=== PATIENT | male | born 1980 | race Caucasian/White ===

== ENCOUNTER 2021-03-25 08:03 | Emergency (ER) | payer SELFPAY ==
[~2021-03-25] VITALS: Ht 172 cm; Wt 82.5 kg
--- NOTE | 2021-03-25 10:12 | Diagnostic Imaging Report ---
INDICATION: Cough. FINDINGS: Portable chest. The lungs are well-aerated and clear. There is no air-trapping. Heart is not enlarged. No pulmonary edema or hilar adenopathy. No pneumothorax or pleural effusions. IMPRESSION: Normal portable chest. Dictated by: Dictated on workstation # [id number]
--- NOTE | 2021-03-25 10:32 | ED Cough/URI ---
General Chief Complaint: Cough/Cold/Flu Symptoms Stated Complaint: CHEST CONGESTION/SOB Nursing Triage Note: PT PRESENTS TO ED VIA POV FROM HOME WITH COMPLAINTS OF CHEST CONGESTION AND COUH X 2 WEEKS. PT REPORTS HE WAS SEEN AT [facility] 3 TIMES SINCE THEN AND HAD 3 COVID TEST DONE WITHIN THE LAST 3 WEEKS ALL OF WHICH HAVE BEEN NEGATIVE. PT STATES HIS LAST VISIT HE WAS DIAGNOSED WITH PNEUMONIA AND PRESCRIBED A 10 DAY COURSE OF ANTIBIOTICS AND AN INHALER. PT DENIES IMPROVEMENT. PT DENIES FEVER. Source: patient Exam Limitations: no limitations History of Present Illness Date Seen by Provider: Mar 25, 2021 Time Seen by Provider: 09:27 Initial Comments Here with report of a few weeks of cough and congestion. He has been on antibiotics and has an inhaler. Still has the cough and congestion. 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 He is concerned about possibility of pneumonia. He has completed 10-day course of Augmentin. Denies nausea, vomiting or diarrhea. He quit smoking 5 months ago. Used to smoke about 5 cigarettes a day. Timing/Duration: constant, getting worse Severity/Quality: moderate, dry cough Prior Episodes/Possible Cause: no prior episodes Modifying Factors: Worse With Coughing Associated Symptoms: cough, fever/chills, nasal congestion, shortness of breath Allergies and Home Medications Allergies Coded Allergies: No Known Drug Allergies (Unverified , 03/25/21) Patient Home Medication List Home Medication List Reviewed: Yes Review of Systems Review of Systems Constitutional: see HPI; No chills, No fever EENTM: throat pain; No nose congestion Respiratory: cough, short of breath Cardiovascular: chest pain (Central chest discomfort with coughing); No edema Gastrointestinal: No abdominal pain, No nausea, No vomiting Genitourinary: no symptoms reported Musculoskeletal: muscle pain; No muscle weakness Past Xmufgek-Wsvyoy-Tjtihh Hx Patient Social History Tobacco Use?: No Smoking Status: Former Smoker Substance use?: No Alcohol Use?: Yes Alcohol type: Beer Alcohol Frequency: Daily Pt feels they are or have been: No Past Medical History Surgery/Hospitalization HX: PMH: KIDNEY STONES Family Medical History Reviewed Nursing Family Hx Physical Exam Vital Signs - First Documented 03/25/21 08:15 Temp 35.9 Pulse 86 Resp 18 B/P (MAP) 136/102 (113) Pulse Ox 97 O2 Delivery Room Air Capillary Refill : Less Than 3 Seconds Height: '" Weight: lbs. oz. kg; 27.00 BMI Method: General Appearance: WD/WN, no apparent distress HEENT: PERRL/EOMI Neck: full range of motion, supple Respiratory: lungs clear, normal breath sounds Cardiovascular: regular rate, rhythm, no murmur Neurologic/Psychiatric: alert, oriented x 3 Progress/Results/Core Measures Suspected Sepsis SIRS Temperature: Pulse: 86 Respiratory Rate: 18 Blood Pressure 136 /102 Mean: 113 Results/Orders My Orders Orders - ALINE BRADSHAW MD Chest 1 View, Ap/Pa Only (03/25/21 09:27) Vital Signs/I&O 03/25/21 03/25/21 08:15 08:15 Temp 35.9 Pulse 86 Resp 18 B/P (MAP) 136/102 (113) Pulse Ox 97 O2 Delivery Room Air Capillary Refill : Less Than 3 Seconds Blood Pressure Mean: 113 Progress Note : Progress Note Seen and evaluated. Chest x-ray ordered. Chest x-ray shows no pneumonia. I do believe the patient would benefit from a course of oral steroids. This was discussed with the patient and he agrees. Discharged home with return precautions. Patient verbalized understanding instructions and agreement with plan Diagnostic Imaging Diagonstic Imaging: Xray Plain Films/CT/US/NM/MRI: chest Comments [facility] [place], [place] NAME: KARLI GODOY [facility] REC#: [id number] PT STATUS: REG ER : 1980 PHYSICIAN: ALINE BRADSHAW MD ADMIT DATE: 03/25/21/ER Draft Date of Exam:03/25/21 CHEST 1 VIEW, AP/PA ONLY INDICATION: Cough. FINDINGS: Portable chest. The lungs are well-aerated and clear. There is no air-trapping. Heart is not enlarged. No pulmonary edema or hilar adenopathy. No pneumothorax or pleural effusions. IMPRESSION: Normal portable chest. Dictated on workstation # [id number] Dict: 03/25/21 1008 Trans: 03/25/21 1012 [id number] Interpreted by: RAMESH BURNETT MD Electronically signed by: Departure Impression Primary Impression: Bronchitis Disposition: 01 HOME, SELF-CARE Condition: Stable Departure-Patient Inst. Decision time for Depature: 10:33 Referrals: NO,LOCAL PHYSICIAN (PCP/Family) Primary Care Physician Patient Instructions: Acute Bronchitis, Adult (DC) Add. Discharge Instructions: All discharge instructions reviewed with patient and/or family. Voiced understanding. Take medications as directed. Drink plenty of fluids. You may take ibuprofen 600 mg every 8 hours as needed for pain. You may also take Tylenol/acetaminophen 1000 mg every 8 hours as needed for pain. Follow-up with your doctor in a few days for recheck. You may continue albuterol inhaler as previously prescribed. Return for worse pain, fever, vomiting, breathing problems, weakness or other concerns as needed. Scripts Prednisone (Prednisone) 20 Mg Tab 40 MG PO DAILY, #10 TAB 0 Refills Prov: ALINE BRADSHAW MD 03/25/21 ALINE BRADSHAW MD Mar 25, 2021 10:32
[2021-03-25] MEDS ORDERED: PRD20T PO (10:36)
[2021-03-25 10:41] VITALS: BP 130/87
== END 2021-03-25 10:41 | disposition home or self-care (01) ==
LOC: ER 08:06
DX: J40 Bronchitis, not specified as acute or chronic (principal); Z87.891 Personal history of nicotine dependence
CPT/HCPCS: 71045

== ENCOUNTER 2021-06-24 06:11 | Emergency (ER) | payer SELFPAY ==
[~2021-06-24] VITALS: Ht 172 cm; Wt 82.5 kg
[~2021-06-24 06:11] MED LIST: PRD20T PO
[2021-06-24] MEDS ORDERED: LACTATED RINGERS 1,000 ML IV STA (06:25)
[2021-06-24] MEDS ORDERED: fentaNYL INJ 100 MCG/2 ML AMP IVP ONE (06:30)
[2021-06-24] MEDS ORDERED: ONDANSETRON 4 MG/2 ML (SDV) Z0FRAN IVP ONE (06:30)
[2021-06-24] MEDS ORDERED: LACTATED RINGERS 1,000 ML IV ONE (06:30)
--- NOTE | 2021-06-24 06:34 | ED GI ---
General Chief Complaint: Abdominal/GI Problems Stated Complaint: ABD PAIN,DIARRHA,VOMITING Nursing Triage Note: DIARRHEA X4 DAYS, VOMITTING/LOWER ABDOMINAL PAIN TODAY. Source of Information: Patient Exam Limitations: No Limitations History of Present Illness Date Seen by Provider: June 24, 2021 Time Seen by Provider: 06:15 Initial Comments Patient to the ER by private conveyance from home with chief complaint of 3 to 4 days of diarrhea, nausea and vomiting, abdominal cramps especially on the left side that are sometimes intractable pain. He has been using Imodium every 4-6 hours. He does not have anything for nausea. No fevers or chills. No abdominal surgeries. No known medical history. No sick contacts. No blood in the diarrhea or emesis. No known history of diverticulosis. No endoscopy Allergies and Home Medications Allergies Coded Allergies: No Known Drug Allergies (Unverified , 03/25/21) Patient Home Medication List Home Medication List Reviewed: Yes Prednisone (Prednisone) 20 Mg Tab, 40 MG PO DAILY Prescribed by: ALINE BRADSHAW on 03/25/21 1036 Review of Systems Review of Systems Constitutional: No chills, No diaphoresis EENTM: No Blurred Vision, No Double Vision Respiratory: Denies Cough, Denies Shortness of Air Cardiovascular: Denies Chest Pain, Denies Edema Gastrointestinal: Denies Abdomen Distended; Abdominal Pain; Denies Constipated; Diarrhea, Nausea, Poor Fluid Intake, Vomiting Genitourinary: Denies Burning, Denies Discharge Musculoskeletal: No back pain, No joint pain All Other Systems Reviewed Negative Unless Noted: Yes Past Gvkcobe-Eqtotq-Kkuczf Hx Patient Social History Tobacco Use?: No Smoking Status: Former Smoker Substance use?: No Alcohol Use?: Yes Alcohol type: Beer Alcohol Frequency: Daily Pt feels they are or have been: No Past Medical History Surgery/Hospitalization HX: PMH: KIDNEY STONES Physical Exam Vital Signs Vital Signs - First Documented 06/24/21 06:18 Temp 36.3 Pulse 93 Resp 20 B/P (MAP) 135/96 (109) Pulse Ox 98 O2 Delivery Room Air Capillary Refill : Less Than 3 Seconds Height/Weight/BMI Height: '" Weight: lbs. oz. kg; 27.00 BMI Method: General Appearance: WD/WN, mild distress HEENT: PERRL/EOMI; No pharynx normal (Dry oral mucosa) Neck: full range of motion, normal inspection Respiratory: lungs clear, normal breath sounds, no respiratory distress, no accessory muscle use Cardiovascular: normal peripheral pulses, regular rate, rhythm (89 hr) Gastrointestinal: normal bowel sounds (Active), soft, no organomegaly, tenderness (Left upper and lower quadrant) Extremities: non-tender, normal inspection, normal capillary refill Neurologic/Psychiatric: alert, normal mood/affect, oriented x 3 Skin: normal color, warm/dry Progress/Results/Core Measures Results/Orders Lab Results Laboratory Tests Test 06/24/21 06:25 06/24/21 06:33 Range/Units White Blood Count 8.1 4.3-11.0 10^3/uL Red Blood Count 5.06 4.30-5.52 10^6/uL Hemoglobin 15.9 13.3-17.7 g/dL Hematocrit 46 40-54 % Mean Corpuscular Volume 91 80-99 fL Mean Corpuscular Hemoglobin 31 25-34 pg Mean Corpuscular Hemoglobin Concent 35 32-36 g/dL Red Cell Distribution Width 12.8 10.0-14.5 % Platelet Count 350 130-400 10^3/uL Mean Platelet Volume 9.8 9.0-12.2 fL Immature Granulocyte % (Auto) 0 % Neutrophils (%) (Auto) 61 42-75 % Lymphocytes (%) (Auto) 25 12-44 % Monocytes (%) (Auto) 9 0-12 % Eosinophils (%) (Auto) 4 0-10 % Basophils (%) (Auto) 1 0-10 % Neutrophils # (Auto) 5.0 1.8-7.8 10^3/uL Lymphocytes # (Auto) 2.0 1.0-4.0 10^3/uL Monocytes # (Auto) 0.7 0.0-1.0 10^3/uL Eosinophils # (Auto) 0.3 0.0-0.3 10^3/uL Basophils # (Auto) 0.1 0.0-0.1 10^3/uL Immature Granulocyte # (Auto) 0.0 0.0-0.1 10^3/uL Sodium Level 136 135-145 MMOL/L Potassium Level 4.0 3.6-5.0 MMOL/L Chloride Level 105 98-107 MMOL/L Carbon Dioxide Level 18 L 21-32 MMOL/L Anion Gap 13 5-14 MMOL/L Blood Urea Nitrogen 14 7-18 MG/DL Creatinine 0.81 0.60-1.30 MG/DL Estimat Glomerular Filtration Rate 114 BUN/Creatinine Ratio 17 Glucose Level 106 H 70-105 MG/DL Calcium Level 9.3 8.5-10.1 MG/DL Corrected Calcium 9.1 8.5-10.1 MG/DL Magnesium Level 1.8 1.6-2.4 MG/DL Total Bilirubin 0.3 0.1-1.0 MG/DL Aspartate Amino Transf (AST/SGOT) 39 H 5-34 U/L Alanine Aminotransferase (ALT/SGPT) 44 0-55 U/L Alkaline Phosphatase 100 40-136 U/L C-Reactive Protein High Sensitivity 0.86 H 0.00-0.50 MG/DL Total Protein 7.2 6.4-8.2 GM/DL Albumin 4.2 3.2-4.5 GM/DL Lipase 88 H 8-78 U/L Urine Color YELLOW Urine Clarity CLEAR Urine pH 6.0 5-9 Urine Specific [place] 1.010 L 1.016-1.022 Urine Protein NEGATIVE NEGATIVE Urine Glucose (UA) NEGATIVE NEGATIVE Urine Ketones NEGATIVE NEGATIVE Urine Nitrite NEGATIVE NEGATIVE Urine Bilirubin NEGATIVE NEGATIVE Urine Urobilinogen 0.2 < = 1.0 MG/DL Urine Leukocyte Esterase NEGATIVE NEGATIVE Urine RBC (Auto) NEGATIVE NEGATIVE Urine RBC NONE /HPF Urine WBC NONE /HPF Urine Squamous Epithelial Cells NONE /HPF Urine Crystals NONE /LPF Urine Bacteria NEGATIVE /HPF Urine Casts NONE /LPF Urine Mucus NEGATIVE /LPF Urine Culture Indicated NO My Orders Orders - CABRERA KAMARA Ed Iv/Invasive Line Start (06/24/21 06:25) Lactated Ringers (Lr 1000 Ml Iv Solution (06/24/21 06:30) Ondansetron Injection (Zofran Injectio (06/24/21 06:30) Fentanyl Inj (Sublimaze Injection) (06/24/21 06:30) Cbc With Automated Diff (06/24/21:25) Comprehensive Metabolic Panel (06/24/21 06:25) Hs C Reactive Protein (06/24/21 06:25) Ua Culture If Indicated (06/24/21 06:25) Magnesium (06/24/21 06:25) Lipase (06/24/21 06:25) Lactated Ringers (Lr 1000 Ml Iv Solution (06/24/21 06:25) Ct Abdomen/Pelvis W (06/24/21 07:01) Iohexol Injection (Omnipaque 350 Mg/Ml 1 (06/24/21 07:30) Sodium Chloride Flush (Catheter Flush Sy (06/24/21 07:30) Ns (Ivpb) (Sodium Chloride 0.9% Ivpb Bag (06/24/21 07:30) Medications Given in ED Current Medications Medications Dose Ordered Sig/Rupal Route Start Time Stop Time Status Last Admin Dose Admin Fentanyl Citrate 25 mcg ONCE ONCE IVP 06/24/21 06:30 06/24/21 06:31 DC 06/24/21 06:32 25 MCG Iohexol 100 ml ONCE ONCE IV 06/24/21 07:30 06/24/21 07:31 DC 06/24/21 07:29 100 ML Lactated Ringer's 1,000 ml @ 0 mls/hr Q0M ONCE IV 06/24/21 06:30 06/24/21 06:31 DC 06/24/21 06:36 0 MLS/HR Ondansetron HCl 8 mg ONCE ONCE IVP 06/24/21 06:30 06/24/21 06:31 DC 06/24/21 06:32 8 MG Sodium Chloride 10 ml NEEDED PRN IV 06/24/21 07:30 06/24/21 07:29 10 ML Sodium Chloride 100 ml ONCE ONCE IV 06/24/21 07:30 06/24/21 07:31 DC 06/24/21 07:29 80 ML Vital Signs/I&O 06/24/21 06:18 Temp 36.3 Pulse 93 Resp 20 B/P (MAP) 135/96 (109) Pulse Ox 98 O2 Delivery Room Air Blood Pressure Mean: 109 Progress Progress Note : Time: 06:34 Progress Note 25 mcg of fentanyl for diarrheal relief and pain relief, 8 of Zofran and 2 L of IV fluids. We will check some labs and electrolytes. Aseptic vital sign. None mesenteric abdominal examination. Diagnostic Imaging Diagonstic Imaging: CT Plain Films/CT/US/NM/MRI: abdomen, pelvis Comments [facility] [place], [place] NAME: KARLI GODOY [facility] REC#: [id number] PT STATUS: REG ER : 1980 PHYSICIAN: CABRERA KAMARA MD ADMIT DATE: 06/24/21/ER Draft Date of Exam:06/24/21 CT ABDOMEN/PELVIS W PROCEDURE: CT abdomen and pelvis with contrast. TECHNIQUE: Multiple contiguous axial images were obtained through the abdomen and pelvis after administration of intravenous contrast. Auto Exposure Controls were utilized during the CT exam to meet ALARA standards for radiation dose reduction. All CT scans use one or more of the following dose optimizing techniques: automated exposure control, MA and/or KvP adjustment based on patient size and exam type or iterative reconstruction. INDICATION: Left-sided abdominal pain. Diarrhea. Nausea and vomiting. COMPARISON: None. FINDINGS: Lung bases are clear. Liver, gallbladder, pancreas, spleen, adrenals, kidneys, collecting systems, bladder and appendix are negative. No free intraperitoneal air or fluid. No lymphadenopathy. No evidence of bowel obstruction. No acute osseous findings. IMPRESSION: No acute CT findings in the abdomen or pelvis. Dictated on workstation # [id number] Dict: 06/24/21 0735 Trans: 06/24/21 0742 [facility] [id number] Interpreted by: CRISTIAN BOTELLO MD Electronically signed by: Reviewed: Reviewed by Me Departure Impression Primary Impression: Gastroenteritis/colitis, infectious Additional Impression: Dehydration Disposition: 01 HOME, SELF-CARE Condition: Stable Departure-Patient Inst. Decision time for Depature: 07:56 Referrals: NO,LOCAL PHYSICIAN (PCP/Family) Primary Care Physician Patient Instructions: Diarrhea, Adult ED, Viral Gastroenteritis, Adult (DC) Add. Discharge Instructions: Drink lots of fluids. Sports drinks are included. Imodium 2 tablets at first followed by 1 tablet every 4 hours afterwards as needed for loose, watery diarrhea. Hydrocodone 1 tablet every 6 hours as needed for severe pain and/or diarrhea. Ondansetron 1 tablet every 6 hours as needed for nausea and/or vomiting under the tongue. Return to the ER for significantly worsening symptoms. Follow-up with your doctor if you are not seeing improvement in 7 to 10 days. Stick to a bland diet for the next couple weeks. Bananas, rice, applesauce and toast for example. All discharge instructions reviewed with patient and/or family. Voiced understanding. Scripts Ondansetron (Ondansetron Odt) 4 Mg Tab.rapdis 4 MG PO Q6H PRN for NAUSEA/VOMITING, #10 TAB 0 Refills Prov: CABRERA KAMARA 06/24/21 Hydrocodone/Acetaminophen (Hydrocodone-Acetamin 5-325 mg) 5 Mg-325 Mg Tablet 1 TAB PO Q6H PRN for PAIN-MODERATE (5-7), #10 TAB 0 Refills Prov: CABRERA KAMARA 06/24/21 Work/School Note: Work Release Form Date Seen in the Emergency Department: June 24, 2021 Return to Work: June 27, 2021 Restrictions: No Restrictions CABRERA KAMARA June 24, 2021 06:34
[2021-06-24 06:43] LABS: BASOPHILS # (AUTO) 0.1 10^3/uL (0.0-0.1); BASOPHILS % (AUTO) 1 % (0-10); EOSINOPHILS # (AUTO) 0.3 10^3/uL (0.0-0.3); EOSINOPHILS % (AUTO) 4 % (0-10); HEMATOCRIT 46 % (40-54); HEMOGLOBIN 15.9 g/dL (13.3-17.7); LYMPHOCYTES % (AUTO) 25 % (12-44); MEAN CORPUSCULAR HEMOGLOBIN 31 pg (25-34); MEAN CORPUSCULAR HGB CONC 35 g/dL (32-36); MEAN CORPUSCULAR VOLUME 91 fL (80-99); MEAN PLATELET VOLUME 9.8 fL (9.0-12.2); MONOCYTES # (AUTO) 0.7 10^3/uL (0.0-1.0); MONOCYTES % (AUTO) 9 % (0-12); NEUTROPHILS % (AUTO) 61 % (42-75); PLATELET COUNT 350 10^3/uL (130-400); WHITE BLOOD COUNT 8.1 10^3/uL (4.3-11.0)
[2021-06-24 06:45] LABS: ALBUMIN 4.2 GM/DL (3.2-4.5)
[2021-06-24 06:47] LABS: CALCIUM 9.3 MG/DL (8.5-10.1)
[2021-06-24 06:48] LABS: TOTAL PROTEIN 7.2 GM/DL (6.4-8.2)
[2021-06-24 06:49] LABS: BILIRUBIN,URINE NEGATIVE (NEGATIVE); CLARITY,URINE CLEAR; COLOR,URINE YELLOW; GLUCOSE, URINE (UA) NEGATIVE (NEGATIVE); KETONES,URINE NEGATIVE (NEGATIVE); LEUKOCYTE ESTERASE ,URINE NEGATIVE (NEGATIVE); NITRITE,URINE NEGATIVE (NEGATIVE); PROTEIN,URINE NEGATIVE (NEGATIVE)
[2021-06-24 06:50] LABS: BILIRUBIN,TOTAL 0.3 MG/DL (0.1-1.0)
[2021-06-24 06:52] LABS: CREATININE SERUM 0.81 MG/DL (0.60-1.30)
[2021-06-24 06:55] LABS: MAGNESIUM 1.8 MG/DL (1.6-2.4)
[2021-06-24 07:11] LABS: BACTERIA,URINE NEGATIVE /HPF
[2021-06-24] MEDS ORDERED: IOHEXOL 350 MG/ML 100 ML (OMNIPAQUE 350) VIAL IV ONE (07:30)
[2021-06-24] MEDS ORDERED: CATHETER FLUSH 10 ML SYR IV PRN (07:30)
[2021-06-24] MEDS ORDERED: NS 100 ML (IVPB) BAG IV ONE (07:30)
--- NOTE | 2021-06-24 07:43 | Diagnostic Imaging Report ---
PROCEDURE: CT abdomen and pelvis with contrast. TECHNIQUE: Multiple contiguous axial images were obtained through the abdomen and pelvis after administration of intravenous contrast. Auto Exposure Controls were utilized during the CT exam to meet ALARA standards for radiation dose reduction. All CT scans use one or more of the following dose optimizing techniques: automated exposure control, MA and/or KvP adjustment based on patient size and exam type or iterative reconstruction. INDICATION: Left-sided abdominal pain. Diarrhea. Nausea and vomiting. COMPARISON: None. FINDINGS: Lung bases are clear. Liver, gallbladder, pancreas, spleen, adrenals, kidneys, collecting systems, bladder and appendix are negative. No free intraperitoneal air or fluid. No lymphadenopathy. No evidence of bowel obstruction. No acute osseous findings. IMPRESSION: No acute CT findings in the abdomen or pelvis. Dictated by: Dictated on workstation # [id number]
[2021-06-24] MEDS ORDERED: ONDA4TAB11 PO (08:01)
[2021-06-24] MEDS ORDERED: ACHD5005 PO (08:01)
[2021-06-24 08:13] VITALS: BP 130/82
== END 2021-06-24 08:13 | disposition home or self-care (01) ==
LOC: EDUNIT# 06:11 → ER 06:15
DX: A09 Infectious gastroenteritis and colitis, unspecified (principal); Z87.891 Personal history of nicotine dependence
CPT/HCPCS: 36415; 74177; 80053; 81000; 83690; 83735; 85025; 86141

== ENCOUNTER 2021-10-06 11:23 | Emergency (ER) | payer SELFPAY ==
[~2021-10-06] VITALS: Ht 172.2 cm; Wt 81.6 kg
[~2021-10-06 11:23] MED LIST changes: +ACHD5005 PO; +ONDA4TAB11 PO
[2021-10-06] MEDS ORDERED: HYDROcodone/APAP 5 MG/325 MG (LORTAB) TAB PO ONE (11:45)
[2021-10-06] MEDS ORDERED: IBUPROFEN 800 MG (MOTRIN) TAB PO ONE (11:45)
--- NOTE | 2021-10-06 11:48 | ED Upper Extremity ---
General Stated Complaint: PAIN IN LEFT ELBOW Source: patient Exam Limitations: no limitations History of Present Illness Date Seen by Provider: Oct 06, 2021 Time Seen by Provider: 11:45 Initial Comments To ER with left lateral elbow pain that occurred just prior to arrival about 1 hour ago. He was lifting a 5 gallon bucket of tar off of a shelf that he th ought was empty but it was full, this weight caught him off guard he felt a popping sensation over the dorsal lateral aspect of the elbow. He now has difficulty flexing or extending the elbow. There was no direct contact of his elbow with anything. Onset: just prior to arrival Severity: moderate Pain/Injury Location: left elbow Method of Injury: unknown Modifying Factors: Worse With Movement Allergies and Home Medications Allergies Coded Allergies: No Known Drug Allergies (Unverified , 03/25/21) Patient Home Medication List Home Medication List Reviewed: Yes Hydrocodone/Acetaminophen (Hydrocodone-Acetamin 5-325 mg) 5 Mg-325 Mg Tablet, 1 TAB PO Q6H PRN for PAIN-MODERATE (5-7) Prescribed by: CABRERA KAMARA on 06/24/21 0801 Ondansetron (Ondansetron Odt) 4 Mg Tab.rapdis, 4 MG PO Q6H PRN for NAUSEA/VOMITING Prescribed by: CABRERA KAMARA on 06/24/21 0801 Prednisone (Prednisone) 20 Mg Tab, 40 MG PO DAILY Prescribed by: ALINE BRADSHAW on 03/25/21 1036 Review of Systems Constitutional: see HPI EENTM: see HPI Respiratory: no symptoms reported Cardiovascular: no symptoms reported Genitourinary: no symptoms reported Musculoskeletal: see HPI Skin: no symptoms reported Psychiatric/Neurological: No Symptoms Reported Past Jrjabip-Ziisyz-Ssjgcr Hx Past Medical History Surgery/Hospitalization HX: PMH: KIDNEY STONES Physical Exam Vital Signs Vital Signs - First Documented 10/06/21 11:40 Temp 36.3 Pulse 91 Resp 16 B/P (MAP) 128/81 (97) Pulse Ox 97 O2 Delivery Room Air Capillary Refill : Height, Weight, BMI Height: '" Weight: lbs. oz. kg; 27.00 BMI Method: General Appearance: WD/WN, no apparent distress Neck: non-tender, full range of motion Respiratory: no respiratory distress, no accessory muscle use Shoulder: normal inspection, non-tender Elbow/Forearm: normal inspection, Left, limited ROM, pain, soft tissue tenderness (along the triceps tendon tender to palpation) Wrist: Yes normal inspection, Yes non-tender Hand: normal inspection, non-tender, Left Neurologic/Psychiatric: alert, normal mood/affect, oriented x 3 Skin: normal color, warm/dry Progress/Results/Core Measures Results/Orders My Orders Orders - DANYELLE ARANGO APRN Ibuprofen Tablet (Motrin Tablet) (10/06/21 11:45) Hydrocodone/Apap 5/325 Tablet (Lortab 5 (10/06/21 11:45) Elbow, Left, 3 Views (10/06/21 11:41) Vital Signs/I&O 10/06/21 11:40 Temp 36.3 Pulse 91 Resp 16 B/P (MAP) 128/81 (97) Pulse Ox 97 O2 Delivery Room Air Departure Impression Primary Impression: Injury of tendon of elbow Disposition: HOME, SELF-CARE Condition: Stable Departure-Patient Inst. Decision time for Depature: 11:52 Referrals: NO,LOCAL PHYSICIAN (PCP) Primary Care Physician NEAL PATEL MD, MICHAEL P MD Patient Instructions: Elbow Sprain ED Add. Discharge Instructions: 1. Continue with the ice pack 30 minutes every 1-2 hours. Do this for 3 to 4 days. Follow-up with your primary care doctor or one of the orthopedic surgeons listed. Use the sling as needed for comfort. Pain medication as directed. If pain is no better in 1 week then follow-up with orthopedics Scripts Hydrocodone/Acetaminophen (Hydrocodone-Acetamin 5-325 mg) 5 Mg-325 Mg Tablet 1 TAB PO Q4H PRN for PAIN-MODERATE (5-7), #14 TAB Prov: DANYELLE ARANGO APRN 10/06/21 Ibuprofen (Ibuprofen) 800 Mg Tablet 800 MG PO Q8H PRN for PAIN, #30 TAB 0 Refills Prov: DANYELLE ARANGO APRN 10/06/21 Work/School Note: Work Release Form Date Seen in the Emergency Department: Oct 06, 2021 Return to Work: Oct 07, 2021 Other Restrictions Listed Below: no use of left arm for 1 week DANYELLE ARANGO APRN Oct 06, 2021 11:48
[2021-10-06] MEDS ORDERED: IBUP-1780 PO (11:55)
[2021-10-06] MEDS ORDERED: ACHD5005 PO (11:55)
--- NOTE | 2021-10-06 12:11 | Diagnostic Imaging Report ---
CLINICAL INDICATION: Patient was taken to 5 gallon bucket off the shelf and pulled his elbow and heard a pop. EXAM: X-ray of the left elbow, 3 views. COMPARISON: None. FINDINGS: There is no acute fracture or dislocation. There is no significant bone or joint abnormality. There is no elbow effusion. IMPRESSION: Unremarkable x-ray of the left elbow. Dictated by: Dictated on workstation # [id number]
[2021-10-06 12:37] VITALS: BP 128/81
== END 2021-10-06 12:37 | disposition home or self-care (01) ==
LOC: EDUNIT# 11:23 → ER 11:27
DX: S56.902A Unspecified injury of unspecified muscles, fascia and tendons at forearm level, left arm, initial encounter (principal); Z28.310 Unvaccinated for COVID-19; X50.0XXA Overexertion from strenuous movement or load, initial encounter
CPT/HCPCS: 73080

== ENCOUNTER 2021-10-21 11:16 | Emergency (ER) | payer SELFPAY ==
[~2021-10-21] VITALS: Ht 172.7 cm; Wt 81.6 kg
[~2021-10-21 11:16] MED LIST changes: +IBUP-1780 PO
[2021-10-21] MEDS ORDERED: methylPREDNISolone 125 MG (Solu-MEDROL) VIAL IM ONE (11:45)
[2021-10-21] MEDS ORDERED: KETOROLAC 60 MG/2 ML VIAL IM ONE (11:45)
[2021-10-21] MEDS ORDERED: CYCL10TA25 PO (11:51)
[2021-10-21] MEDS ORDERED: METH4TAB10 PO (11:51)
--- NOTE | 2021-10-21 11:51 | ED Upper Extremity ---
General Chief Complaint: Upper Extremity Stated Complaint: CAN'T MOVE LT ARM Nursing Triage Note: PT AMB TO RM 5. PT WAS SEEN 2 WEEKS AGO FOR ARM INJURY. PT STATES HE RE-INJURED HIS ARM TODAY. Source: patient Exam Limitations: no limitations History of Present Illness Date Seen by Provider: Oct 21, 2021 Time Seen by Provider: 11:30 Initial Comments Patient to the ER by private conveyance chief complaint that he sustained an injury to his left elbow and was seen at the ER. This was doing better however today while lifting up a can of paint additive he had a sudden sharp pain from his shoulder down to his fourth and fifth digit with tingling. He is having pain in his elbow. He has just been using ibuprofen and Tylenol for his pain. He cannot lift anything with his arm now because of the pain and tingling. He is having spasms in his shoulder. No pain in his neck. No other trauma. Allergies and Home Medications Allergies Coded Allergies: No Known Drug Allergies (Unverified , 03/25/21) Patient Home Medication List Home Medication List Reviewed: Yes Cyclobenzaprine HCl (Cyclobenzaprine HCl) 10 Mg Tablet, 10 MG PO Q8H PRN for SPASMS Prescribed by: CABRERA KAMARA on 10/21/21 1151 Hydrocodone/Acetaminophen (Hydrocodone-Acetamin 5-325 mg) 5 Mg-325 Mg Tablet, 1 TAB PO Q6H PRN for PAIN-MODERATE (5-7) Prescribed by: CABRERA KAMARA on 06/24/21 0801 Hydrocodone/Acetaminophen (Hydrocodone-Acetamin 5-325 mg) 5 Mg-325 Mg Tablet, 1 TAB PO Q4H PRN for PAIN-MODERATE (5-7) Prescribed by: DANYELLE ARANGO on 10/06/21 1155 Ibuprofen (Ibuprofen) 800 Mg Tablet, 800 MG PO Q8H PRN for PAIN Prescribed by: DANYELLE ARANGO on 10/06/21 1155 Methylprednisolone (Methylprednisolone Dose Pack) 4 Mg Tab.ds.pk, 4 MG PO UD Prescribed by: CABRERA KAMARA on 10/21/21 1151 Ondansetron (Ondansetron Odt) 4 Mg Tab.rapdis, 4 MG PO Q6H PRN for NAUSEA /VOMITING Prescribed by: CABRERA KAMARA on 06/24/21 0801 Prednisone (Prednisone) 20 Mg Tab, 40 MG PO DAILY Prescribed by: ALINE BRADSHAW on 03/25/21 1036 Review of Systems Constitutional: No chills, No diaphoresis EENTM: No ear discharge, No ear pain Respiratory: No cough, No short of breath Cardiovascular: No edema, No palpitations Gastrointestinal: No abdominal pain, No constipation Genitourinary: No dysuria, No frequency All Other Systems Reviewed Negative Unless Noted: Yes Past Nvzztxy-Rusmjn-Ygkuui Hx Patient Social History Tobacco Use?: Yes Tobacco type used: Cigarettes Substance use?: Yes Substance type: Marijuana Alcohol Use?: Yes Immunizations Up To Date Influenza Vaccine Up-to-Date: No; Not Current Past Medical History Surgery/Hospitalization HX: PMH: KIDNEY STONES Physical Exam Vital Signs Vital Signs - First Documented 10/21/21 11:34 Pulse 85 B/P (MAP) 147/115 (126) Pulse Ox 95 O2 Delivery Room Air Capillary Refill : Height, Weight, BMI Height: '" Weight: lbs. oz. kg; 27.00 BMI Method: General Appearance: WD/WN, no apparent distress HEENT: PERRL/EOMI, normal ENT inspection Neck: non-tender, full range of motion Cardiovascular: normal peripheral pulses, regular rate, rhythm Respiratory: normal breath sounds, no respiratory distress, no accessory muscle use Gastrointestinal: non tender, soft Shoulder: swelling (Left shoulder in trapezius spasm.) Elbow/Forearm: limited ROM, pain (Tenderness over the ulnar gutter to Tinel's t ap. Left elbow) Hand: normal inspection, non-tender Neurologic/Psychiatric: alert, normal mood/affect, oriented x 3 Skin: normal color, warm/dry Progress/Results/Core Measures Results/Orders My Orders Orders - CABRERA KAMARA Ketorolac Injection (Toradol Injection) (10/21/21 11:45) Methylprednisolone Sod Succ (Solu-Medrol (10/21/21 11:45) Vital Signs/I&O 10/21/21 11:34 Pulse 85 B/P (MAP) 147/115 (126) Pulse Ox 95 O2 Delivery Room Air Blood Pressure Mean: 126 Progress Progress Note : Time: 11:49 Progress Note He is having some spasm of his left upper extremity. No pain or tenderness to manipulation of his neck. Muscle relaxants, Toradol, steroids and referral to orthopedics. Departure Impression Primary Impression: Cervical radiculopathy, acute Disposition: HOME, SELF-CARE Condition: Stable Departure-Patient Inst. Decision time for Depature: 11:50 Referrals: NO,LOCAL PHYSICIAN (PCP) Primary Care Physician TE BERUMEN MD Patient Instructions: Radiculopathy (DC) Add. Discharge Instructions: You have impinged nerve in your neck going down to your left arm. This is probably caused by the inflammation from musculoskeletal injury in your left arm. Follow-up with the orthopedic surgeon, Dr. Berumen by calling for an appointment. Continue to take naproxen 2 tablets twice a day for the next 2 weeks to reduce the inflammation. Medrol Dosepak take as prescribed starting tomorrow. Cyclobenzaprine 1 tablet every 8 hours as needed for muscle spasms. Topical creams such as icy hot or Biofreeze can be helpful for pain. All discharge instructions reviewed with patient and/or family. Voiced understanding. Scripts Methylprednisolone (Methylprednisolone Dose Pack) 4 Mg Tab.ds.pk 4 MG PO UD for 6 Days, #21 PKG 0 Refills PER DOSE PACK INSTRUCTIONS Prov: CABRERA KAMARA 10/21/21 Cyclobenzaprine HCl (Cyclobenzaprine HCl) 10 Mg Tablet 10 MG PO Q8H PRN for SPASMS, #20 TAB 0 Refills Prov: CABRERA KAMARA 10/21/21 Work/School Note: Work Release Form Date Seen in the Emergency Department: Oct 21, 2021 Return to Work: Oct 23, 2021 Restrictions: Need Release from Doctor Other Restrictions Listed Below: No lifting more than 5 pound left upper extremity until 10/28/2021. Copy Copies To 1: TE BERUMEN MD, TITUS J Oct 21, 2021 11:51
[2021-10-21 12:06] VITALS: BP 134/93
== END 2021-10-21 12:06 | disposition home or self-care (01) ==
LOC: EDUNIT# 11:16 → ER 11:19
DX: M54.12 Radiculopathy, cervical region (principal); Z28.310 Unvaccinated for COVID-19
CPT/HCPCS: 99284

== ENCOUNTER 2022-06-01 08:44 | Emergency (ER) | payer SELFPAY ==
[~2022-06-01 08:44] MED LIST changes: +CYCL10TA25 PO; +METH4TAB10 PO
[2022-06-01] MEDS ORDERED: BENZONATATE 100 MG (TESSALON) CAPSULE PO STA (09:00)
[2022-06-01] MEDS ORDERED: IBUPROFEN 600 MG (MOTRIN) TAB PO ONE (09:00)
[2022-06-01] MEDS ORDERED: RT-ALBUTEROL/IPRATROPIUM 3 ML (DUONEB) VIAL INH ONE (09:00)
--- NOTE | 2022-06-01 09:05 | ED Cough/URI ---
General Chief Complaint: Chest Wall Stated Complaint: COUGH - CONGESTION Source: patient Exam Limitations: no limitations History of Present Illness Date Seen by Provider: Jun 01, 2022 Time Seen by Provider: 08:56 Initial Comments Patient is a 42-year-old male who presents to the emergency department today with a chief complaint of cough, dry for the past 3 to 4 days, feeling short of breath and feeling significant tightness and pressure after he coughs when he takes a deep breath. He had mild right-sided earache and sore throat over the last couple of days. He has been using xouy-yte-yddnzya DayQuil for his symptoms. No fevers or chills. Is not nauseous. No abdominal pain, nausea, vomiting, diarrhea. Cannot recall any sick contacts. Is not COVID vaccinated. Does smoke approximately half a pack cigarettes daily but only 3 cigarettes or so a day in the last 3 or 4 days. Does not have to use inhalers for his breathing on a routine basis. Takes no daily medications. Timing/Duration: other (3-4d) Severity/Quality: dry cough Prior Episodes/Possible Cause: occasional episodes Associated Symptoms: chest pain/soreness, cough, earache, nasal congestion, shortness of breath, sore throat Allergies and Home Medications Allergies Coded Allergies: No Known Drug Allergies (Unverified , 03/25/21) Patient Home Medication List Home Medication List Reviewed: Yes Cyclobenzaprine HCl (Cyclobenzaprine HCl) 10 Mg Tablet, 10 MG PO Q8H PRN for SPASMS Prescribed by: CABRERA KAMARA on 10/21/21 1151 Hydrocodone/Acetaminophen (Hydrocodone-Acetamin 5-325 mg) 5 Mg-325 Mg Tablet, 1 TAB PO Q6H PRN for PAIN-MODERATE (5-7) Prescribed by: CABRERA KAMARA on 06/24/21 0801 Hydrocodone/Acetaminophen (Hydrocodone-Acetamin 5-325 mg) 5 Mg-325 Mg Tablet, 1 TAB PO Q4H PRN for PAIN-MODERATE (5-7) Prescribed by: DANYELLE ARANGO on 10/06/21 1155 Ibuprofen (Ibuprofen) 800 Mg Tablet, 800 MG PO Q8H PRN for PAIN Prescribed by: DANYELLE ARANGO on 10/06/21 1155 Methylprednisolone (Methylprednisolone Dose Pack) 4 Mg Tab.ds.pk, 4 MG PO UD Prescribed by: CABRERA KAMARA on 10/21/21 1151 Ondansetron (Ondansetron Odt) 4 Mg Tab.rapdis, 4 MG PO Q6H PRN for NAUSEA/VOMITING Prescribed by: CABRERA KAMARA on 06/24/21 0801 Prednisone (Prednisone) 20 Mg Tab, 40 MG PO DAILY Prescribed by: ALINE BRADSHAW on 03/25/21 1036 Review of Systems Review of Systems Constitutional: see HPI EENTM: ear pain, nose congestion, throat pain Respiratory: cough, short of breath Cardiovascular: chest pain Gastrointestinal: no symptoms reported Genitourinary: no symptoms reported Musculoskeletal: no symptoms reported Skin: no symptoms reported All Other Systems Reviewed Negative Unless Noted: Yes Past Rrcbehx-Aparof-Lghltr Hx Patient Social History Tobacco Use?: Yes Tobacco type used: Cigarettes Substance use?: Yes Substance type: Marijuana Additional substance use comme: [employer] Alcohol Use?: Yes Pt feels they are or have been: No Immunizations Up To Date Influenza Vaccine Up-to-Date: No; Not Current Past Medical History Surgery/Hospitalization HX: PMH: KIDNEY STONES ANXIETY Physical Exam Vital Signs - First Documented 06/01/22 06/01/22 08:51 09:31 Temp 37.0 Pulse 83 Resp 18 B/P (MAP) 153/106 (122) Pulse Ox 97 O2 Delivery Room Air Capillary Refill : Height: '" Weight: lbs. oz. kg; 27.00 BMI Method: General Appearance: WD/WN, no apparent distress Eyes: Bilateral Eye Normal Inspection, Bilateral Eye PERRL, Bilateral Eye EOMI HEENT: TMs normal, pharyngeal erythema Progress/Results/Core Measures Suspected Sepsis SIRS Temperature: Pulse: Respiratory Rate: Blood Pressure / Mean: Results/Orders Lab Results Laboratory Tests Test 06/01/22 09:09 Range/Units Group A Streptococcus Screen NEGATIVE NEGATIVE My Orders Orders - JETHRO YEN MD Chest 1 View, Ap/Pa Only (06/01/22 09:00) Rapid Strep A Screen (06/01/22 09:00) Ibuprofen Tablet (Motrin Tablet) (06/01/22 09:00) Benzonatate Capsule (Tessalon Perles) (06/01/22 09:00) Albuterol/Ipra Inhalation Soln (Duoneb I (06/01/22 09:00) Svn Small Volume Nebulizer (06/01/22 09:00) Throat Culture Strep A Confirm (06/01/22 09:09) Medications Given in ED Current Medications Medications Dose Ordered Sig/Rupal Route Start Time Stop Time Status Last Admin Dose Admin Albuterol/ Ipratropium 3 ml ONCE ONCE INH 06/01/22 09:00 06/01/22 09:02 DC 06/01/22 09:31 3 ML Ibuprofen 600 mg ONCE ONCE PO 06/01/22 09:00 06/01/22 09:02 DC 06/01/22 09:09 600 MG Vital Signs/I&O 06/01/22 06/01/22 08:51 09:31 Temp 37.0 Pulse 83 Resp 18 B/P (MAP) 153/106 (122) Pulse Ox 97 O2 Delivery Room Air Capillary Refill : Diagnostic Imaging Diagonstic Imaging: Xray Plain Films/CT/US/NM/MRI: chest Comments [facility], [place] NAME: KARLI GODOY [facility] REC#: [id number] PT STATUS: REG ER : 1980 PHYSICIAN: JETHRO YEN MD ADMIT DATE: 06/01/22/ER Draft Date of Exam:06/01/22 CHEST 1 VIEW, AP/PA ONLY INDICATION: Cough, shortness of breath. COMPARISON: 03/25/2021. TECHNIQUE: Single radiograph of the chest dated 06/01/2022. FINDINGS: The cardiac silhouette is within normal limits in size. No significant pulmonary vascular congestion. The lungs are clear. No pleural effusion. No pneumothorax. No acute osseous abnormality. IMPRESSION: Similar-appearing examination without acute cardiopulmonary abnormality. Dictated on workstation # [id number] Dict: 06/01/22926 Trans: 06/01/2231 [id number] Interpreted by: MIKIE CINTRON MD Electronically signed by: Counseling-Symptomatic: 3-10 Minutes Follow-up with PCP to: Discuss Further Options Departure Impression Primary Impression: Acute bronchitis Qualified Codes: J20.9 - Acute bronchitis, unspecified Disposition: 01 HOME, SELF-CARE Condition: Improved Departure-Patient Inst. Decision time for Depature: 09:46 Referrals: NO,LOCAL PHYSICIAN (PCP/Family) Primary Care Physician Add. Discharge Instructions: Drink plenty fluids to stay well-hydrated. You should try and stop smoking if possible. Antibiotic, azithromycin as directed for the next 5 days. Wzes-tem-zfavwoj ibuprofen 3 tablets which is 600 mg every 6 hours as needed for pain. Albuterol inhaler 2 puffs every 4-6 hours as needed for shortness of breath. Tessalon Perles 1 3 times a day as needed for cough. You can take gsmf-yxu-buousvz Robitussin DM 2 teaspoons every 6 hours as needed for cough with the DayQuil medication. If you develop a fever, worsening shortness of breath or pain or any other emergent, concerning symptoms please return to the emergency department for reevaluation. Scripts Azithromycin (Azithromycin) 250 Mg Tablet 250 MG PO UD, #6 TAB TAKE 2 TABLETS ON DAY ONE THEN TAKE 1 TABLET DAILY FOR FOUR MORE DAYS Prov: JETHRO YEN MD 06/01/22 Benzonatate (TESSALON PERLES) 100 Mg Capsule 200 MG PO TID PRN for cough, #30 CAP Prov: JETHRO YEN MD 06/01/22 Albuterol Sulfate (Ventolin Hfa) 90 Mcg Hfa.aer.ad 2 PUFF INH Q4H PRN for SHORTNESS OF BREATH, #1 UNIT 1 PUFF = 90 MCG Prov: JETHRO YEN MD 06/01/22 Work/School Note: Work Release Form Date Seen in the Emergency Department: Jun 01, 2022 Return to Work: Jun 02, 2022 JETHRO YEN MD Jun 01, 2022 09:05
--- NOTE | 2022-06-01 09:31 | Diagnostic Imaging Report ---
INDICATION: Cough, shortness of breath. COMPARISON: 03/25/2021. TECHNIQUE: Single radiograph of the chest dated 06/01/2022. FINDINGS: The cardiac silhouette is within normal limits in size. No significant pulmonary vascular congestion. The lungs are clear. No pleural effusion. No pneumothorax. No acute osseous abnormality. IMPRESSION: Similar-appearing examination without acute cardiopulmonary abnormality. Dictated by: Dictated on workstation # [id number]
[2022-06-01] MEDS ORDERED: BENZ100C18 PO (09:48)
[2022-06-01] MEDS ORDERED: ALBU8.5H6 INH (09:48)
[2022-06-01] MEDS ORDERED: AZIT250T12 PO (09:49)
[2022-06-01 09:56] VITALS: BP 147/95
== END 2022-06-01 09:57 | disposition home or self-care (01) ==
LOC: EDUNIT# 08:44 → ER 08:45
DX: J20.9 Acute bronchitis, unspecified (principal); F17.210 Nicotine dependence, cigarettes, uncomplicated
CPT/HCPCS: 71045; 87430; 94640

== ENCOUNTER 2022-12-29 09:38 | Emergency (ER) | payer SELFPAY ==
[~2022-12-29] VITALS: Ht 172 cm; Wt 88.4 kg
[~2022-12-29 09:38] MED LIST changes: +ALBU8.5H6 INH; +AZIT250T12 PO; +BENZ100C18 PO
[2022-12-29] MEDS ORDERED: LACTATED RINGERS 1,000 ML 1,000 ML IV ONE (10:00)
[2022-12-29] MEDS ORDERED: fentaNYL INJECTION 100 MCG/2 ML VIAL IVP ONE (10:00)
[2022-12-29 10:05] LABS: BASOPHILS # (AUTO) 0.1 10^3/uL (0.0-0.1); BASOPHILS % (AUTO) 1 % (0-10); EOSINOPHILS # (AUTO) 0.3 10^3/uL (0.0-0.3); EOSINOPHILS % (AUTO) 3 % (0-10); HEMATOCRIT 50 % (40-54); LYMPHOCYTES # (AUTO) 2.2 10^3/uL (1.0-4.0); LYMPHOCYTES % (AUTO) 21 % (12-44); MEAN CORPUSCULAR HEMOGLOBIN 32 pg (25-34); MEAN CORPUSCULAR HGB CONC 34 g/dL (32-36); MEAN CORPUSCULAR VOLUME 93 fL (80-99); MEAN PLATELET VOLUME 9.3 fL (9.0-12.2); MONOCYTES # (AUTO) 0.9 10^3/uL (0.0-1.0); MONOCYTES % (AUTO) 8 % (0-12); NEUTROPHILS % (AUTO) 67 % (42-75); PLATELET COUNT 349 10^3/uL (130-400); WHITE BLOOD COUNT 10.4 10^3/uL (4.3-11.0)
[2022-12-29 10:15] LABS: BACTERIA,URINE NEGATIVE /HPF; BILIRUBIN,URINE NEGATIVE (NEGATIVE); CLARITY,URINE CLEAR; COLOR,URINE YELLOW; GLUCOSE, URINE (UA) NEGATIVE (NEGATIVE); KETONES,URINE TRACE (NEGATIVE); LEUKOCYTE ESTERASE ,URINE NEGATIVE (NEGATIVE); NITRITE,URINE NEGATIVE (NEGATIVE); PROTEIN,URINE NEGATIVE (NEGATIVE); SQUAMOUS EPITHELIAL CELL,UR RARE /HPF
[2022-12-29 10:18] LABS: ALBUMIN 4.4 GM/DL (3.2-4.5)
[2022-12-29 10:19] LABS: POTASSIUM 4.2 MMOL/L (3.6-5.0)
[2022-12-29 10:20] LABS: CALCIUM 9.3 MG/DL (8.5-10.1)
[2022-12-29 10:21] LABS: TOTAL PROTEIN 7.9 GM/DL (6.4-8.2)
[2022-12-29 10:23] LABS: BILIRUBIN,TOTAL 0.6 MG/DL (0.1-1.0)
[2022-12-29 10:25] LABS: CREATININE SERUM 0.86 MG/DL (0.60-1.30)
--- NOTE | 2022-12-29 10:36 | ED Abdominal Pain ---
General Chief Complaint: Abdominal/GI Problems Stated Complaint: LEFT SIDE LOWER ABD PAIN Nursing Triage Note: PT AMBULATORY TO ER. PT C/O L ABD PAIN THAT RADIATES INTO L FLANK. HX OF KIDNEY STONES, REPORTS THIS PAIN IS WORSE THAN PREVIOUS KIDNEY STONES. HAS TAKEN ALEVE WITH NO RELIEF. Source of Information: Patient Exam Limitations: No Limitations History of Present Illness Date Seen by Provider: Dec 29, 2022 Time Seen by Provider: 09:59 Initial Comments This 42-year-old gentleman presents to the emergency room with complaints of pain in the left abdomen radiating to the left flank. Symptoms started 3 days ago. He has history of ureteral stones and states this pain is reminiscent of prior stones. He took Aleve 3 hours ago without significant relief. The pain has become more stabbing in nature. He denies any associated symptoms such as nausea, vomiting, diarrhea, or constipation. He admits to drinking alcohol up to a sixpack of beer daily. He additionally smokes and uses marijuana. His primary care is [facility]. He denies any urinary symptoms such as hematuria or dysuria. Allergies and Home Medications Allergies Coded Allergies: No Known Drug Allergies (Unverified , 03/25/21) Patient Home Medication List Home Medication List Reviewed: Yes Albuterol Sulfate (Ventolin Hfa) 90 Mcg Hfa.aer.ad, 2 PUFF INH Q4H PRN for SHORTNESS OF BREATH Prescribed by: JETHRO YEN on 06/01/22 0948 Azithromycin (Azithromycin) 250 Mg Tablet, 250 MG PO UD Prescribed by: JETHRO YEN on 06/01/22 0949 Benzonatate (Tessalon Perles) 100 Mg Capsule, 200 MG PO TID PRN for cough Prescribed by: JETHRO YEN on 06/01/22 0948 Cyclobenzaprine HCl (Cyclobenzaprine HCl) 10 Mg Tablet, 10 MG PO Q8H PRN for SPASMS Prescribed by: CABRERA KAMARA on 10/21/21 1151 Hydrocodone/Acetaminophen (Hydrocodone-Acetamin 5-325 mg) 5 Mg-325 Mg Tablet, 1 TAB PO Q6H PRN for PAIN-MODERATE (5-7) Prescribed by: CABRERA KAMARA on 06/24/21 0801 Hydrocodone/Acetaminophen (Hydrocodone-Acetamin 5-325 mg) 5 Mg-325 Mg Tablet, 1 TAB PO Q4H PRN for PAIN-MODERATE (5-7) Prescribed by: DANYELLE ARANGO on 10/06/21 1155 Hydrocodone/Acetaminophen (Hydrocodone-Acetamin 5-325 mg) 5 Mg-325 Mg Tablet, 1 TAB PO Q4H PRN for PAIN BREAKTROUGH Prescribed by: MARIA ELENA CALDERON on 12/29/22 1331 Ibuprofen (Ibuprofen) 800 Mg Tablet, 800 MG PO Q8H PRN for PAIN Prescribed by: DANYELLE ARANGO on 10/06/21 1155 Methylprednisolone (Methylprednisolone Dose Pack) 4 Mg Tab.ds.pk, 4 MG PO UD Prescribed by: CABRERA KAMARA on 10/21/21 1151 Ondansetron (Ondansetron Odt) 4 Mg Tab.rapdis, 4 MG PO Q6H PRN for NAUS EA/VOMITING Prescribed by: CABRERA KAMARA on 06/24/21 0801 Prednisone (Prednisone) 20 Mg Tab, 40 MG PO DAILY Prescribed by: ALINE BRADSHAW on 03/25/21 1036 Review of Systems Review of Systems Constitutional: no symptoms reported EENTM: No Symptoms Reported Respiratory: No Symptoms Reported Cardiovascular: No Symptoms Reported Gastrointestinal: See HPI Genitourinary: See HPI Musculoskeletal: no symptoms reported Skin: no symptoms reported Psychiatric/Neurological: No Symptoms Reported Endocrine: No Symptoms Reported Hematologic/Lymphatic: No Symptoms Reported Past [id number]-[id number] Hx Patient Social History Tobacco Use?: Yes Tobacco type used: Cigarettes Smoking Status: Current Everyday Smoker Substance use?: Yes Substance type: Marijuana Alcohol Use?: Yes Alcohol type: Beer Alcohol Frequency: Daily Pt feels they are or have been: No Immunizations Up To Date First/Initial COVID19 Vaccinat: DENIES Past Medical History Surgery/Hospitalization HX: PMH: KIDNEY STONES ANXIETY Surgeries: No Respiratory: No Cardiac: No Neurological: No Genitourinary: Yes Kidney Stones Gastrointestinal: No Musculoskeletal: No Endocrine: No HEENT: No Cancer: No Psychosocial: No Integumentary: No Physical Exam Vital Signs Capillary Refill : Height/Weight/BMI Height: '" Weight: lbs. oz. kg; 29.00 BMI Method: General Appearance: WD/WN, no apparent distress HEENT: normal ENT inspection Neck: normal inspection Respiratory: lungs clear, normal breath sounds, no respiratory distress Cardiovascular: regular rate, rhythm, no edema, no murmur Gastrointestinal: normal bowel sounds, soft; No distended; tenderness (left central abdomen and flank) Extremities: normal inspection, no pedal edema Neurologic/Psychiatric: no motor/sensory deficits, alert, normal mood/affect, oriented x 3 Skin: normal color, warm/dry Progress/Results/Core Measures Results/Orders Lab Results Laboratory Tests Test 12/29/22 09:57 Range/Units White Blood Count 10.4 4.3-11.0 10^3/uL Red Blood Count 5.36 4.30-5.52 10^6/uL Hemoglobin 17.0 13.3-17.7 g/dL Hematocrit 50 40-54 % Mean Corpuscular Volume 93 80-99 fL Mean Corpuscular Hemoglobin 32 25-34 pg Mean Corpuscular Hemoglobin Concent 34 32-36 g/dL Red Cell Distribution Width 12.8 10.0-14.5 % Platelet Count 349 130-400 10^3/uL Mean Platelet Volume 9.3 9.0-12.2 fL Immature Granulocyte % (Auto) 0 % Neutrophils (%) (Auto) 67 42-75 % Lymphocytes (%) (Auto) 21 12-44 % Monocytes (%) (Auto) 8 0-12 % Eosinophils (%) (Auto) 3 0-10 % Basophils (%) (Auto) 1 0-10 % Neutrophils # (Auto) 7.0 1.8-7.8 10^3/uL Lymphocytes # (Auto) 2.2 1.0-4.0 10^3/uL Monocytes # (Auto) 0.9 0.0-1.0 10^3/uL Eosinophils # (Auto) 0.3 0.0-0.3 10^3/uL Basophils # (Auto) 0.1 0.0-0.1 10^3/uL Immature Granulocyte # (Auto) 0.0 0.0-0.1 10^3/uL Urine Color YELLOW Urine Clarity CLEAR Urine pH 6.0 5-9 Urine Specific [place] 1.015 L 1.016-1.022 Urine Protein NEGATIVE NEGATIVE Urine Glucose (UA) NEGATIVE NEGATIVE Urine Ketones TRACE H NEGATIVE Urine Nitrite NEGATIVE NEGATIVE Urine Bilirubin NEGATIVE NEGATIVE Urine Urobilinogen 0.2 < = 1.0 MG/DL Urine Leukocyte Esterase NEGATIVE NEGATIVE Urine RBC (Auto) NEGATIVE NEGATIVE Urine RBC NONE /HPF Urine WBC NONE /HPF Urine Squamous Epithelial Cells RARE /HPF Urine Crystals NONE /LPF Urine Bacteria NEGATIVE /HPF Urine Casts NONE /LPF Urine Mucus NEGATIVE /LPF Urine Culture Indicated NO Sodium Level 134 L 135-145 MMOL/L Potassium Level 4.2 3.6-5.0 MMOL/L Chloride Level 100 98-107 MMOL/L Carbon Dioxide Level 22 21-32 MMOL/L Anion Gap 12 5-14 MMOL/L Blood Urea Nitrogen 10 7-18 MG/DL Creatinine 0.86 0.60-1.30 MG/DL Estimat Glomerular Filtration Rate 112 BUN/Creatinine Ratio 12 Glucose Level 107 H 70-105 MG/DL Calcium Level 9.3 8.5-10.1 MG/DL Corrected Calcium 9.0 8.5-10.1 MG/DL Total Bilirubin 0.6 0.1-1.0 MG/DL Aspartate Amino Transf (AST/SGOT) 94 H 5-34 U/L Alanine Aminotransferase (ALT/SGPT) 102 H 0-55 U/L Alkaline Phosphatase 120 40-136 U/L Total Protein 7.9 6.4-8.2 GM/DL Albumin 4.4 3.2-4.5 GM/DL Lipase 52 8-78 U/L My Orders Orders - MARIA ELENA SILVA MD Cbc And Automated Diff (12/29/22 09:59) Comprehensive Metabolic Panel (12/29/22 09:59) Lipase (12/29/22 09:59) Ua Culture If Indicated (12/29/22 09:59) Ed Iv/Invasive Line Start (12/29/22 09:59) Lactated Ringers 1,000 Ml (Lactated Ring (12/29/22 10:00) Fentanyl Injection (Fentanyl Injection (12/29/22 10:00) Ct Abdomen/Pelvis W (12/29/22 11:26) Iohexol Injection (Omnipaque 350 Mg/Ml 1 (12/29/22 11:45) Received Contrast (Hold Metformin- Contr (12/29/22 11:45) Ns (Ivpb) 100 Ml (Sodium Chloride 0.9% 1 (12/29/22 11:45) Iohexol Injection (Omnipaque 350 Mg/Ml 1 (12/29/22 11:45) Received Contrast (Hold Metformin- Contr (12/29/22 11:45) Ns (Ivpb) 100 Ml (Sodium Chloride 0.9% 1 (12/29/22 11:45) Ondansetron Injection (Ondansetron Inj (12/29/22 12:45) Lidocaine 2% Viscous 15 Ml (Xylocaine Vi (12/29/22 12:45) Antacid Suspension (Antacid Suspension (12/29/22 12:45) Ketorolac Injection (Ketorolac Injection (12/29/22 13:30) Iv Push Employee Wellness/Fitness Coordinator Ed (12/29/22 ) Medications Given in ED Vital Signs/I&O Blood Pressure Mean: 130 Progress Progress Note : Progress Note Isai was interviewed and examined. Pain was initially treated with fentanyl. He was hydrated with a liter of LR. Labs were obtained, reviewed, and interpreted by me. CBC was unremarkable. CMP revealed slight hyperglycemia and slight elevation in transaminases. The remainder of the chemistry and urinalysis were clinically unremarkable by my interpretation. CT of the abdomen pelvis was obtained to determine if ureteral stone or other pathology was causing his pain. CT report was reviewed. No pathology to explain his pain was identified. GI cocktail was given but did not improve his pain. On reexamination, the pain seems to be more in the flank wall. This may be musculoskeletal in nature. Toradol was administered prior to departure. See discharge instructions for further discussion. Diagnostic Imaging Diagonstic Imaging: CT Plain Films/CT/US/NM/MRI: abdomen, pelvis Comments NAME: ISAI [facility]OY [facility] REC#: [id number] PT STATUS: REG ER : 1980 PHYSICIAN: MARIA ELENA SILVA MD ADMIT DATE: 12/29/22/ER Signed Date of Exam:12/29/22 CT ABDOMEN/PELVIS W EXAMINATION: CT abdomen and pelvis with intravenous contrast. TECHNIQUE: Multiple contiguous axial images were obtained through the abdomen and pelvis after the uneventful administration of intravenous contrast. All CT scans use one or more of the following dose optimizing techniques: automated exposure control, MA and/or KvP adjustment based on patient size and exam type or iterative reconstruction. HISTORY: Left-sided abdominal pain. COMPARISON: 06/24/2021. FINDINGS: The heart is unremarkable. The included lung bases are clear. There is hepatic steatosis. Focal fatty sparing is seen along the gallbladder fossa. No focal hepatic lesions. The portal vein is patent. The gallbladder is unremarkable. The spleen, pancreas, adrenal glands, and kidneys have a normal appearance. There is no pathologically enlarged mesenteric or retroperitoneal adenopathy. The bowel loops are nondilated. The appendix is visualized in the right lower quadrant and has a normal appearance. There is no free fluid or free air. No acute osseous abnormalities. The urinary bladder is nondistended. There is bladder wall thickening. There is no free air, loculated collection, or adenopathy in the pelvis. IMPRESSION: 1. No bowel obstruction. No free fluid or free air. 2. Bladder wall thickening, which can be seen with inadequate distention versus cystitis. No hydronephrosis. Recommend correlation with UA. 3. Hepatic steatosis. No focal hepatic lesions. Dictated by: Dictated on workstation # [id number] Dict: 12/29/22 1216 Trans: 12/29/22 1225 [id number] Interpreted by: PERRY ESQUIVEL DO Electronically signed by: PERRY ESQUIVEL DO 12/29/22 1225 Departure Impression Primary Impression: Left flank pain Disposition: 01 HOME, SELF-CARE Condition: Stable Departure-Patient Inst. Decision time for Depature: 13:27 Referrals: NO,LOCAL PHYSICIAN (PCP/Family) Primary Care Physician Patient Instructions: Flank Pain ED Add. Discharge Instructions: The exact cause of your pain is uncertain based on your work-up in the emergency room. Your lab tests including blood work and urine testing were unremarkable. Your CT scan did not reveal a source of your pain. Your pain may be musculoskeletal in nature. For primary pain control try taking ibuprofen up to 600 mg every 6 hours as needed. Take with food or milk to avoid stomach upset. Add hydrocodone as prescribed for pain not controlled by ibuprofen. Taper down on your alcohol consumption as you should not drink alcohol while taking hydrocodone. However, you should not abruptly stop alcohol after drinking daily for a prolonged period of time as this may cause dangerous withdrawal. Follow-up with a primary care provider soon as possible. Return to care if you have worsening symptoms despite following these instructions. All discharge instructions reviewed with patient and/or family. Voiced understanding. Scripts Hydrocodone/Acetaminophen (Hydrocodone-Acetamin 5-325 mg) 5 Mg-325 Mg Tablet 1 TAB PO Q4H PRN for PAIN BREAKTROUGH, #10 TAB Prov: MARIA ELENA SILVA MD 12/29/22 Work/School Note: Work Release Form Date Seen in the Emergency Department: Dec 29, 2022 Return to Work: Dec 30, 2022 Other Restrictions Listed Below: Start with light duty. Gradually advance activity as pain allows. MARIA ELENA SILVA MD Dec 29, 2022 10:36
[2022-12-29] MEDS ORDERED: NS 100 ML (IVPB) BAG IV ONE ×2 (11:45)
[2022-12-29] MEDS ORDERED: IOHEXOL 350 MG/ML 100 ML (OMNIPAQUE 350) VIAL IV ONE ×2 (11:45)
[2022-12-29] MEDS ORDERED: HOLD METFORMIN - RECEIVED CONTRAST 20 ML VIAL IV SCH ×2 (11:45)
--- NOTE | 2022-12-29 12:21 | Diagnostic Imaging Report ---
EXAMINATION: CT abdomen and pelvis with intravenous contrast. TECHNIQUE: Multiple contiguous axial images were obtained through the abdomen and pelvis after the uneventful administration of intravenous contrast. All CT scans use one or more of the following dose optimizing techniques: automated exposure control, MA and/or KvP adjustment based on patient size and exam type or iterative reconstruction. HISTORY: Left-sided abdominal pain. COMPARISON: 06/24/2021. FINDINGS: The heart is unremarkable. The included lung bases are clear. There is hepatic steatosis. Focal fatty sparing is seen along the gallbladder fossa. No focal hepatic lesions. The portal vein is patent. The gallbladder is unremarkable. The spleen, pancreas, adrenal glands, and kidneys have a normal appearance. There is no pathologically enlarged mesenteric or retroperitoneal adenopathy. The bowel loops are nondilated. The appendix is visualized in the right lower quadrant and has a normal appearance. There is no free fluid or free air. No acute osseous abnormalities. The urinary bladder is nondistended. There is bladder wall thickening. There is no free air, loculated collection, or adenopathy in the pelvis. IMPRESSION: 1. No bowel obstruction. No free fluid or free air. 2. Bladder wall thickening, which can be seen with inadequate distention versus cystitis. No hydronephrosis. Recommend correlation with UA. 3. Hepatic steatosis. No focal hepatic lesions. Dictated by: Dictated on workstation # [id number]
[2022-12-29] MEDS ORDERED: LIDOCAINE 2% VISCOUS 15 ML UDC PO ONE (12:45)
[2022-12-29] MEDS ORDERED: ONDANSETRON INJECTION 4 MG/2 ML (SDV) IVP ONE (12:45)
[2022-12-29] MEDS ORDERED: ANTACID SUSPENSION 30 ML UDC PO ONE (12:45)
[2022-12-29] MEDS ORDERED: KETOROLAC INJ 30 MG/ML VIAL IVP ONE (13:30)
[2022-12-29] MEDS ORDERED: ACHD5005 PO (13:30)
[2022-12-29 13:38] VITALS: BP 140/108
== END 2022-12-29 13:38 | disposition home or self-care (01) ==
LOC: EDUNIT# 09:38 → ER 09:42
DX: R10.32 Left lower quadrant pain (principal); F17.290 Nicotine dependence, other tobacco product, uncomplicated
CPT/HCPCS: 36415; 74177; 80053; 81000; 83690; 85025; 96374; 96375